=== PATIENT | male | born 1940 | race Caucasian/White ===

== ENCOUNTER → 2019-02-13 | Outpatient (CLI) | payer MEDICARE ==
[~2019-02-13] MED LIST: ALPRAZOLAM XR0.5 MG PO; AMANTADINE50 MG/5 ML PO; CARDIZEM30 MG GT; COLACE100 MG PO; COLACE150 MG/15 PO; DIGOX0.25 MG PO; ENALAPRIL MALEAT5 MG PO; EXELON4.6 MG/24 T; FLOMAX0.4 MG PO; GABAPENTIN300 M1 PO; GEODON60 MG PO; GOOD SENSE400 MG/5 M GT; HEPARIN SOD U IJ; JEVITY 1.2 CA1000 ML GT; KEPPRA100 MG/ML PO; KEPPRA500 MG PO; KLOR-CON20 MEQ GT; LOPRESSOR100 MG PO; LOPRESSOR25 MG PO; METFORMIN HYDR500 M1 PO; METOPROLOL25 MG PO; MIRALAX17 GM/DOSE PO; NOVOLOG100 U/ML SC; NYSTATIN100000 U/M PO; PERIDEX PO; PROVIGIL100 MG GT; SENNA8.6 MG PO; SENOKOT1 TAB PO; SEROQUEL50 MG GT; SIMVASTATIN10 MG PO; TRAMADOL HCL50 MG GT; TRAMADOL HCL50 MG PO; TRAZODONE50 MG GT; TYLENOL EX500 MG/15 GT; WARFARIN SODIUM5 MG PO; ZYPREXA2.5 MG PO; [UNRECOGNIZED DRUG - OTHER] IJ
[2019-02-13 08:12] LABS: BASO # 0.1 10*3/uL (0.0-0.1); BASO % 0.8 % (0.0-1.0); EOS # 0.2 10*3/uL (0.0-0.4); EOS % 2.2 % (1.0-4.0); HEMATOCRIT 45.9 % (42.0-52.0); HEMOGLOBIN 15.2 g/dl (14.0-18.0); LYMPH # 2.4 10*3/uL (1.3-4.4); LYMPH % 31.1 % (27.0-41.0); MEAN CELL VOLUME 96.4 fl (80.0-94.0); MEAN CORPUSCULAR HGB 31.9 pg (27.0-31.0); MEAN CORPUSCULAR HGB CONC 33.1 g/dl (33.0-37.0); MEAN PLATELET VOLUME 10.6 fl (9.6-12.3); MONO # 0.7 10*3/uL (0.1-1.0); MONO % 9.2 % (3.0-9.0); NEUT # 4.3 10*3/uL (2.3-7.9); NEUT % 56.2 % (47.0-73.0); PLATELET COUNT AUTOMATED 162 10*3/uL (130-400); RED BLOOD COUNT 4.76 10*6/uL (4.50-5.90); RED CELL DISTRI WIDTH 14.7 % (0-14.5); WHITE BLOOD COUNT 7.6 10*3/uL (4.8-10.8)
[2019-02-13 08:39] LABS: ALBUMIN 3.4 gm/dl (3.1-4.5); CREATININE 1.67 mg/dL (0.70-1.30); FREE T4 1.08 ng/dl (0.76-1.46); POTASSIUM 4.3 mmol/L (3.5-5.1); TOTAL PROTEIN 7.1 gm/dL (6.4-8.2)
[2019-02-13 08:45] LABS: THYROID STIM HORMONE (HS) 2.3 uIU/ml (0.358-4.75)
[2019-02-13 09:11] LABS: VITAMIN D, 25-HYDROXY 44.9 ng/mL (30-100)
== END | disposition home or self-care (01) ==
LOC: LAB 07:40
PROVIDERS: Internal Medicine
DX: E03.9 Hypothyroidism, unspecified (principal); D52.9 Folate deficiency anemia, unspecified; E55.9 Vitamin D deficiency, unspecified; E78.2 Mixed hyperlipidemia; R79.89 Other specified abnormal findings of blood chemistry; R53.81 Other malaise

== ENCOUNTER → 2019-03-27 | Outpatient (CLI) | payer MEDICARE | END | disposition home or self-care (01) | LOC: CARD 13:33 | DX: I08.1 Rheumatic disorders of both mitral and tricuspid valves (principal) ==

== ENCOUNTER 2020-07-27 18:39 | Emergency (ER) | payer OTHER ==
[~2020-07-27] VITALS: Ht 177.8 cm; Wt 111.1 kg
[2020-07-27] MEDS ORDERED: RIVASTIGMINE TAR3 M1 PO (19:11)
[2020-07-27] MEDS ORDERED: WARFARIN SOD5 MG PO (19:13)
[2020-07-27] MEDS ORDERED: FUROSEMIDE40 MG PO (19:13)
[2020-07-27 19:55] LABS: BASO % 0.4 % (0.0-1.0); EOS # 0.1 10*3/uL (0.0-0.4); EOS % 0.8 % (1.0-4.0); HEMATOCRIT 44.1 % (42.0-52.0); LYMPH # 1.1 10*3/uL (1.3-4.4); LYMPH % 13.9 % (27.0-41.0); MEAN CELL VOLUME 95.5 fl (80.0-94.0); MEAN CORPUSCULAR HGB 31.6 pg (27.0-31.0); MEAN CORPUSCULAR HGB CONC 33.1 g/dl (33.0-37.0); MEAN PLATELET VOLUME 10.9 fl (9.6-12.3); MONO # 0.8 10*3/uL (0.1-1.0); MONO % 9.5 % (3.0-9.0); NEUT % 75.1 % (47.0-73.0); PLATELET COUNT AUTOMATED 209 10*3/uL (130-400); RED BLOOD COUNT 4.62 10*6/uL (4.50-5.90); RED CELL DISTRI WIDTH 14.6 % (0-14.5)
[2020-07-27 20:11] LABS: ALBUMIN 3.5 gm/dl (3.1-4.5); ALKALINE PHOSPHATASE 75 U/L (45-117); BUN 30 mg/dl (7-24); CHLORIDE 110 mmol/L (98-107); CREATININE 1.88 mg/dL (0.70-1.30); ETHYL ALCOHOL < 3.0 mg/dl (<3); POTASSIUM 3.4 mmol/L (3.5-5.1); SGOT/AST 9 IU/L (3-35); SGPT/ALT 14 U/L (12-78); SODIUM 143 mmol/L (136-145); TOTAL PROTEIN 7.5 gm/dL (6.4-8.2); TROPONIN I < 0.015 ng/ml (<0.045)
[2020-07-27 20:55] LABS: BILIRUBIN Negative (Negative); BLOOD 1+ (Negative); CLARITY Clear (Clear); COLOR Yellow (Yellow); GLUCOSE Negative (Negative); KETONE Negative (Negative); LEUKO ESTERASE 3+ (Negative); NITRITE Negative (Negative); SPECIFIC GRAVITY 1.025 (1.001-1.030)
[2020-07-27 21:04] LABS: BACTERIA 2+; EPITHELIAL CELLS 0-2; RBC 0-2 rbc/hpf (0-2)
== END 2020-07-27 22:03 | disposition short-term general hospital (02) ==
LOC: ED 18:39
PROVIDERS: Emergency Medicine
DX: S06.5X0A Traumatic subdural hemorrhage without loss of consciousness, initial encounter (principal); Z91.018 Allergy to other foods; Z79.899 Other long term (current) drug therapy; W18.39XA Other fall on same level, initial encounter; Y93.89 Activity, other specified; Y92.89 Other specified places as the place of occurrence of the external cause; Y99.8 Other external cause status